=== PATIENT | male | born 2000 | race Caucasian/White ===

== ENCOUNTER 2025-06-02 23:54 | Emergency (ER) | payer SELFPAY ==
[2025-06-03] VITALS (10 sets, daily range): BP systolic 89–119; BP diastolic 53–78; PULSE 76–129; RESP 14–22; TEMP 36.6; O2SAT 94–97; BMI 25.7
--- NOTE | 2025-06-03 00:10 | XRR_ITS ---
PROCEDURE INFORMATION: Exam: XR Chest Exam date and time: 06/03/2025 12:56 AM Age: 24 years old Clinical indication: Pain; Chest pressure; Additional info: Cp TECHNIQUE: Imaging protocol: Radiologic exam of the chest. Views: 1 view. COMPARISON: No relevant prior studies available. FINDINGS: Lungs: Unremarkable. No consolidation. Pleural spaces: Unremarkable. No pleural effusion. No pneumothorax. Heart/Mediastinum: Unremarkable. No cardiomegaly. Bones/joints: Unremarkable. XR/XR chest 1V portable [id number] IMPRESSION: No acute findings.
[2025-06-03] MEDS: magnesium sulfate premix 2 GM/50 ML PIGGYBACK IV (00:16)
[2025-06-03] MEDS: dilTIAZem 5 mg/mL SDV 5 mL 25 MG IVP (00:47)
[2025-06-03 00:52] LABS: Hematocrit 45.1 % (37-53); Hemoglobin 15.70 g/dL (11.27-16.99); Mean Corpuscular HGB Conc 34.8 g/dL (30-55); Mean Corpuscular Hemoglobin 32.0 pg (27-33); Mean Corpuscular Volume 91.9 fl (82-101); Nucleated Red Blood Cells % 0 %; Platelet Count 215 10^3/cmm (157-399); Red Blood Count 4.91 10^6/uL (3.85-5.65); White Blood Count 7.01 10^3/uL (3.29-11.43)
[2025-06-03 01:03] LABS: Lactic Sepsis W/Reflex 1.4 mmol/L (0.5-2.2)
[2025-06-03 01:08] LABS: Troponin(5th) Baseline < 6 ng/L (0-15)
[2025-06-03 01:15] LABS: Anion Gap 12.9 (5-19); Blood Urea Nitrogen 11 mg/dL (6-20); Calcium 8.8 mg/dL (8.5-10.5); Carbon Dioxide 26 mmol/L (22-29); Chloride 107 mmol/L (98-107); Glucose 118 mg/dL (65-115); Magnesium 1.9 mg/dL (1.7-2.3); NT Pro B Type Natriuretic Pept 39 pg/mL (0-125); Osmolality Calculated 294 mOsm/kg (285-295); Potassium 3.9 mmol/L (3.5-5.1); Sodium 142 mmol/L (136-145); Thyroid Stimulating Hormone 1.14 uIU/mL (0.27-4.20)
[2025-06-03 01:31] LABS: CRP High Sensitivity Cardiac < 0.150 mg/dL (0.0-0.3)
--- NOTE | 2025-06-03 02:03 | W.ED.ARRPALP ---
HPI - Arrhythmia/Palpitations General: Chief Complaint: Arrhythmia/Palpitations Stated Complaint: cp Time Seen by Provider: 06/02/25 23:58 History of Present Illness: Patient is a 24-year-old male with a history of atrial fibrillation who presents to the ED with CP and palpitations. He reports being out of his usual medications (propranolol, diltiazem, and Eliquis) for about three weeks. He describes initial symptoms of chest discomfort and a sensation of pressure. His HR was in the 190s for EMS and recieved IV Dilt (.25mg/kg), and feels better but HR is still flucuating from 100-140s. He denies severe chest pain, significant shortness of breath, or lightheadedness. Denies fever, chills, FLS, NVD, abd pain. Related Data Previous Rx's ?Medication ?Instructions ?Recorded apixaban 5 mg tablet (Eliquis) 5 mg PO BID #30 tabs 06/03/25 diltiazem HCl 30 mg tablet 30 mg PO TID #30 tabs 06/03/25 (Cardizem) propranolol 10 mg tablet 10 mg PO TID #30 tabs 06/03/25 Review of Systems General: Reports: 10 or more systems reviewed and unremarkable except in HPI and below Const: Denies: fever(s) or chills Eyes: Denies: change in vision or eye discharge Card: Reports: chest pain and palpitations; Denies: swelling of feet/ankles Resp: Denies: dyspnea or productive cough GI: Denies: abdominal pain or diarrhea : Denies: difficulty urinating Musc: Denies: neck pain or back pain Skin/Breast: Denies: rash or jaundice Neuro: Denies: headache(s), numbness in extremities or weakness in extremities Fawad/Lymph: Denies: easy bruising or easy bleeding Physical Exam Narrative: EXAM NARRATIVE: Patient overall well-appearing, afebrile and vital signs stable on arrival, no acute distress. head normocephalic, PERRL, dry mucous membranes, no cervical LAD. breathing comfortably on RA, saturating well, clear BL and no adventitious breath sounds, able to speak in full sentences without getting SOB, no signs of respiratory distress. in irregularly irregular rhythm with HR in the 130s, normotensive, no murmurs, slightly delayed cap refill, 2+ pulses throughout. Abdomen soft, nontender, nondistended, no localizing or peritonitic signs, no overlying skin changes, no CVA ttp. 4 extremities without apparent deformity or injury. GCS 15, AAOx4, able to answer questions and follow commands appropriately, moving all 4 extremities symmetrically and spontaneoulsy. Normal mood and affect. Course Vital Signs: Vital signs: Vital Signs Temperature 97.9 F 06/03/25 00:01 Pulse Rate 81 06/03/25 02:00 Respiratory Rate 20 H 06/03/25 02:00 Blood Pressure 106/67 06/03/25 02:00 Pulse Oximetry 97 06/03/25 02:00 Oxygen Delivery Me thod Room Air 06/03/25 00:01 MDM - Arrhythmia/Palpitations Medical Decision Making -ddx: AF RVR, ACS, electrolyte abnl, dehydration, medication nonadherence, viral syndrome -patient with seemingly abrupt onset of sx tonight seemingly as he developed AF RVR, most likely 2/2 to not having his home meds for 3 weeks. one dose of IV Dilt improved HR from 190s to 140s, symptoms improved, mentating appropriately, resp status unaffected, will obtain labs/cardiac mendoza to assess for other triggers or condequences of his AF and treat as needed. -HR persisted in 140s, second dose of Dilt at .35mg/kg ordered, patient got mildly soft pressures, rest of 1st liter pressure bagged and 2nd liter ordered, no changes in resp or neuro status, 2g of Mag given empirically. -labs not showing any concerning secondary cause or damage from RVR, CXR with no PTX, effusions, infiltrates. patient remained in with HR in the 70s for a period of time after the above treatments, he was given an oral dose of Dilt to try and maintain his HR and was discharged in stable condition with refills of his home cardiac meds and advised to fu in a few days with PCP, strict return precautions given, dc'd with sister at bedside. Lab Data 06/03/25 00:21 06/03/25 00:21 Radiology Impressions Chest X-Ray 06/03/25 00:10 IMPRESSION: No acute findings. Laboratory Results WBC 7.01 10^3/uL (3.29-11.43) 06/03/25 00:21 RBC 4.91 10^6/uL (3.85-5.65) 06/03/25 00:21 Hgb 15.70 g/dL (11.27-16.99) 06/03/25 00:21 Hct 45.1 % (37-53) 06/03/25 00:21 MCV 91.9 fl (82-101) 06/03/25 00:21 MCH 32.0 pg (27-33) 06/03/25 00: MCHC 34.8 g/dL (30-55) 06/03/25 00:21 RDW 13.1 % (12.1-15.1) 06/03/25 00:21 Plt Count 215 10^3/cmm (157-399) 06/03/25 00:21 MPV 10.9 fL (7.4-10.4) H 06/03/25 00:21 Neut % (Auto) 58.2 % 06/03/25 00:21 Lymph % (Auto) 32.2 % 06/03/25 00:21 Mcclain % (Auto) 6.7 % 06/03/25 00:21 Eos % (Auto) 2.3 % 06/03/25 00:21 Baso % (Auto) 0.3 % 06/03/25 00:21 Neut # (Auto) 4.08 10^3/uL (1.8-7.7) 06/03/25 00:21 Lymph # (Auto) 2.3 10^3/uL (0.8-4.8) 06/03/25 00:21 Mcclain # (Auto) 0.5 10^3/uL (0.2-0.9) 06/03/25 00:21 Eos # (Auto) 0.2 10^3/uL (0.0-0.8) 06/03/25 00:21 Baso # (Auto) 0.0 10^3/uL (0.0-0.1) 06/03/25 00:21 Nucleated RBC % (auto) 0 % 06/03/25 00: Nucleated RBCs # 0.0 /100WBC 06/03/25 00:21 Sodium 142 mmol/L (136-145) 06/03/25 00:21 Potassium 3.9 mmol/L (3.5-5.1) 06/03/25 00:21 Chloride 107 mmol/L (98-107) 06/03/25 00:21 Carbon Dioxide 26 mmol/L (22-29) 06/03/25 00:21 Anion Gap 12.9 (5-19) 06/03/25 00:21 BUN 11 mg/dL (6-20) 06/03/25 00:21 Creatinine 0.8 mg/dL (0.7-1.2) 06/03/25 00:21 GFR Calculation 120.9 mL/min (90-130) 06/03/25 00:21 Glucose 118 mg/dL (65-115) H 06/03/25 00:21 Calculated Osmolality 294 mOsm/kg (285-295) 06/03/25 00:21 Lactic Acid 1.4 mmol/L (0.5-2.2) 06/03/25 00:21 Calcium 8.8 mg/dL (8.5-10.5) 06/03/25 00:21 Phosphorus 3.7 mg/dL (2.5-4.5) 06/03/25 00:21 Magnesium 1.9 mg/dL (1.7-2.3) 06/03/25 00:21 Troponin T Baseline < 6 ng/L (0-15) 06/03/25 00:21 C-React Prot High Sens < 0.150 mg/dL (0.0-0.3) 06/03/25 00:21 NT-Pro-B Natriuret Pep 39 pg/mL (0-125) 06/03/25 00:21 TSH 1.14 uIU/mL (0.27-4.20) 06/03/25 00:21 All radiology interpretation(s) finalized by discharge Clincial Decision Support The following clinical decision support tools were used to aid in care of the patient HEART Score -> History: Slightly Suspicous, EKG: Non-specific Changes, Age: Less than 45 yrs, Risk Factors: 1 or 2 Risk Factors, Troponin: Baseline Trop <16 ng/L. Resulting HEART Score: 2. Critical Care Time Critical Care Time: Critical Care Time: Yes Total Critical Care Time: 32 Attestation: AF RVR causing potential HD instability and requiring IV medications for rate control Discharge Plan Discharge Patient Disposition: Home Clinical Impression: Atrial fibrillation Condition: Stable Prescriptions: New diltiazem HCl [Cardizem] 30 mg tablet 30 mg PO TID Qty: 30 1RF propranolol 10 mg tablet 10 mg PO TID Qty: 30 1RF Eliquis 5 mg tablet 5 mg PO BID Qty: 30 1RF Discharge Orders: Discharge ED (Routine); Ordered 06/03/25 Ordered By: Kyle Craig Referrals: Swetha Alba MD [Physician, Cardiology] - 7-10 days Clinical Impression: Atrial fibrillation Discharge Diet: Usual diet Discharge Activity: Resume usual activity Patient Instructions: Opioid Safety, Pain Management, Patient Portal & Gm Instructions Activity Restrictions/Additional Instructions: You were seen for your high heart rate, this was evaluated and determined to be A-fib with a rapid ventricular response, most likely it in setting of not being able to have your medications filled. This was controlled with 2 doses of IV diltiazem, you were given fluids and magnesium which kept the heart rate at a manageable level and because you felt well you were able to be discharged home. Refills of your diltiazem, Eliquis and propranolol have been written for, take them as previously scheduled. Follow-up with the cardiology clinic listed above if you need a new doctor. Return to the ED with severe worsening of her symptoms, episodes of passing out, breathing difficulties, any other emergent concerns. Print Language: Welsh Coding Level of Care Code ED Special Education Superintendent for Ana Cazares
== END 2025-06-03 02:42 | disposition home or self-care (01) ==
PROVIDERS: Emergency Provider Student in an Organized Health Care Education/Training Program
DX: I48.91 Unspecified atrial fibrillation (principal)
CPT/HCPCS: 36415; 71045; 80048; 83605; 83735; 83880; 84100; 84443; 84484; 85025; 86141; 96361; 96365; 96375; 99284; J3475; J3490; J7030; J7120; J9999